=== PATIENT | female | born 1980 | race Caucasian/White ===

== ENCOUNTER 2016-11-25 14:01 | Emergency (ER) | payer OTHER, MEDICAID ==
[~2016-11-25] VITALS: Ht 172.7 cm; Wt 70.0 kg
[~2016-11-25 14:01] MED LIST: LOPE2 PO; Z.0.NO CURRENT MEDS; ZOFR4TAB3 SL
[2016-11-25 14:03] VITALS: BP 142/110; PULSE 79; RESP 15; TEMP 98.1; O2SAT 98
[2016-11-25] MEDS ORDERED: IBUP800T23 PO (14:12)
--- NOTE | 2016-11-25 14:36 | PD ---
HPI Chief Complaint: Lump, Cyst, Hernia Time Seen by Provider: 14:36 Travel History International Travel<30 days: No Contact w/Intl Traveler<30days: No Traveled to known affect area: No History of Present Illness HPI 35 YO F presents to the the ED for evaluation of swollen right-sided lymph node in the neck. Patient states that it was swollen this morning when she woke up. She denies fever, chills, ear pain, sore throat, rhinorrhea, cough. She states that she bit the inside of her cheek but can identify no other injury. She took Benadryl and applied an ice pack with some improvement of symptoms. Denies chronic health problems. Takes no daily medications. PFSH Past Medical History Medical History: Denies Significant Hx Diminished Hearing: No Immunizations Current: Yes ?: Not LMP: IUD IN PLACE : 1 Para: 1 Miscarriage: 0 : 0 Past Surgical History Surgical History: No Previous Surgery Social History Alcohol Use: Yes (occ) Tobacco Use: No Substance Use: No Allergies-Medications (Allergen,Severity, Reaction): Coded Allergies: Vicodin (Verified Allergy, Severe, HIVES, 11/25/16) Percocet (Verified Allergy, Intermediate, HIVES, 11/25/16) Reported Meds & Prescriptions Reported Meds & Active Scripts Active Reported Ibuprofen 800 Mg Tab 800 Mg PO Q6HR PRN Review of Systems Except as stated in HPI: all other systems reviewed are Neg Physical Exam Narrative GENERAL: Well-nourished, well-developed well-appearing white female in no acute distress. SKIN: Warm and dry. HEAD: Normocephalic. Atraumatic. EYES: No scleral icterus. No injection or drainage. PERRLA. EOMI. ENT: Pearly robertson tympanic membranes bilaterally. Nasal mucosa is moist. Oropharynx without erythema, edema or exudate. NECK: Supple, trachea midline. No JVD. Tender submandibular lymphadenopathy of the right side. CARDIOVASCULAR: Regular rate and rhythm without murmurs, gallops, or rubs. 2+ DP and radial pulses bilaterally. RESPIRATORY: Breath sounds clear and equal bilaterally. No accessory muscle use. GASTROINTESTINAL: Abdomen soft, non-tender, nondistended. MUSCULOSKELETAL: No cyanosis, or edema. Ambulatory with normal gait. BACK: Nontender without obvious deformity. No CVA tenderness. Data Data Last Documented VS Vital Signs Date Time Temp Pulse Resp B/P Pulse Ox O2 Delivery O2 Flow Rate FiO2 11/25/16 14:03 98.1 79 15 142/110 98 MDM Medical Decision Making Medical Screen Exam Complete: Yes Emergency Medical Condition: Yes Differential Diagnosis LAD versus viral syndrome versus pharyngitis versus other Narrative Course 35 YO F presents to the the ED for evaluation of swollen right-sided lymph node in the neck. Patient states that it was swollen this morning when she woke up. She denies fever, chills, ear pain, sore throat, rhinorrhea, cough. She states that she bit the inside of her cheek but can identify no other injury. Vitals reviewed. Physical exam reveals a very well-appearing white female in no acute distress. There is mild to moderate lymphadenopathy of the left submandibular gland with the physical exam is otherwise unremarkable. I don't feel lab work is warranted. Patient instructed to take ibuprofen and apply warm compresses, follow up with the primary care if the LAD does not resolve in 2-3 weeks. She indicated understanding of instructions and is agreeable to the care plan. The patient is stable and discharged home. Diagnosis Primary Impression: Lymphadenopathy, submandibular Referrals: Primary Care Physician Patient Instructions: General Instructions, Lymphadenopathy (ED) Additional Instructions: Rest, hydrate. Take 600 mg ibuprofen every 8 hours as needed for pain. Warm compresses applied to the lymph node may help to reduce pain and swelling. Follow-up with primary care as discussed. Return to the ED for any urgent or emergent medical condition. Disposition: 01 DISCHARGE HOME Condition: Stable Lucía Biggs Nov 25, 2016 14:36
== END 2016-11-25 15:15 | disposition home or self-care (01) ==
LOC: PHEFT 14:01
DX: R59.0 Localized enlarged lymph nodes (principal)
CPT/HCPCS: 99282